=== PATIENT | male | born 1935 | race Caucasian/White ===

== ENCOUNTER 2016-12-22 15:03 | Emergency (ER) | payer MEDICARE, BC ==
[~2016-12-22 15:03] MED LIST: ACID REDUCER20 M1 PO; ADULT LOW DOSE81 M1 PO; ALBUTEROL2.5 MG/0.1 AERO NEB; ALOE VESTA56 G1 TOP; AMIODARONE HCL400 M1 PO; AVODART0.5 MG PO; BACITRACIN28.4 G2 TOP; BACTRIM 400-801 EAC1 PO; BACTRIM DS TAB1 EAC2 PO; CALCIUM500 M3 PO; COLACE100 M1 PO; COUMADIN4 M1 PO; COUMADIN5 M2 PO; COUMADIN6 M1 PO; DEMADEX20 M1 PO; DOCUSATE SODIU100 M3 PO; DULCOLAX5 M1 PO; FISH OIL 1,2001 CAP PO; FLOMAX0.4 M1 PO; FLOMAX0.4 MG PO; IBUPROFEN600 MG PO; K-TAB ER20 ME1 PO; LAXATIVE; LEXAPRO10 M2 PO; MIRALAX17 G2 PO; MOTRIN600 MG PO; NEURONTIN300 M1 PO; NORCO 5-325 TA1 EACH PO; NORCO 5/325 TAB1 TAB PO; NYSTATIN15 G2 TOP; OXAZEPAM10 M1 PO; PACERONE200 M1 PO; PREPARATION H C TOP; PROBIOTIC1 EA10 PO; PROSCAR5 M1 PO; PROTONIX40 M2 PO; RELIVE; SENOKOT-S TABL1 EACH PO; SENOKOT-S TABLE1 TAB PO; SINEMET ER 25/11 TA1 PO; SULFAMYLON60 GM TOP; TYLENOL325 M2 PO; VANCOMYCIN1 GM/1001 IV; VITAMIN D35000 UNI3 PO; VITAMIN D5000 UNI1 PO; pepcid
[2016-12-22] MEDS ORDERED: BACTRIM DS TAB1 EAC2 PO (15:10)
[2016-12-22] MEDS ORDERED: TOPROL XL25 M1 PO (15:10)
[2016-12-22] MEDS ORDERED: DIOVAN PO (15:10)
[2016-12-22] MEDS ORDERED: SYNTHROID50 MC1 PO (15:11)
[2016-12-22] MEDS ORDERED: LEXAPRO10 M2 PO (15:11)
[2016-12-22 16:34] LABS: URINE APPEARANCE CLEAR; URINE BILIRUBIN NEGATIVE (NEG); URINE BLOOD SMALL (NEG); URINE COLOR YELLOW; URINE GLUCOSE (UA) NEGATIVE (NEG); URINE KETONE NEGATIVE (NEG); URINE LEUKOCYTE ESTERASE POSITIVE (NEG); URINE NITRITE NEGATIVE (NEG); URINE PROTEIN MODERATE (NEG)
[2016-12-22 16:35] LABS: URINE EPITHELIAL CELLS 0-1 /[HPF] (0-10); URINE OTHER UNCENTRIFUGED MICRO; URINE RBC 0-2 /[HPF] (0-5); URINE WBC 0-2 /[HPF] (0-5)
[2016-12-22] MEDS ORDERED: XARELTO15 M1 PO (16:43)
[2016-12-22] MEDS ORDERED: [UNRECOGNIZED DRUG - OTHER] PO (16:43)
[2016-12-22] MEDS ORDERED: [UNRECOGNIZED DRUG - OTHER] PO (16:44)
[2016-12-22 17:30] LABS: BASO % 0.2 % (0-2); EOS % 4.2 % (0-7); EOSINOPHIL ABSOLUTE COUNT 0.2 tho/cmm (0.0-0.7); HCT-HEMATOCRIT 38.7 % (36.0-53.5); HGB-HEMOGLOBIN 13.3 gm/dl (13.5-17.0); IMMATURE GRANULOCYTES ABSOLUTE 0.02 tho/cmm (0-0.03); IMMATURE GRANULOCYTES PERCENT 0.4 % (0-0.3); LYMPH % 20.2 % (20-45); LYMPH ABSOLUTE COUNT 1.2 tho/cmm (0.8-4.5); MCH (MEAN CORPUSCULAR HGB) 31.7 pg (28.0-32.0); MCHC MEAN CORPUSCULAR HGB CONC 34.4 % (32.0-36.0); MCV (MEAN CELL VOLUME) 92.1 fl (82.0-96.0); MEAN PLATELET VOLUME 8.7 cmc (9.4-12.4); MONO % 12.7 % (0-12); MONOCYTE ABSOLUTE COUNT 0.7 tho/cmm (0.0-1.2); NEUTROPHIL ABSOLUTE COUNT 3.6 tho/cmm (1.6-8.0); NEUTROPHIL-AUTOMATED 3.6 tho/cmm (1.6-8.0); NEUTROPHILS % 62.3 % (40-80); PLATELET COUNT 204 tho/cmm (150-450); RED CELL DISTRIBUTION WIDTH 14.5 % (12.4-16.4); WHITE BLOOD COUNT 5.7 tho/cmm (4.0-10.0)
[2016-12-22 17:47] LABS: ANION GAP 10 mmol/L (0-20); BLOOD UREA NITROGEN 29 mg/dl (6-24); CARBON DIOXIDE-VENOUS 26 mmol/L (22-32); CHLORIDE 106 mmol/l (96-110); CREATININE 1.23 mg/dl (0.60-1.30); GLUCOSE 93 mg/dL (70-110); POTASSIUM 4.6 mmol/L (3.7-5.1); SODIUM 137 mmol/L (135-145); eGFR VALUE FOR BLACK 63 mL/Min
[2017-05-06] MEDS ORDERED: LEXAPRO20 M2 PO (11:33)
[2017-05-06] MEDS ORDERED: MYRBETRIQ50 M1 PO (11:37)
[2017-05-08] MEDS ORDERED: NORCO 5-325 TA1 EACH PO (08:57)
== END 2016-12-22 21:30 ==
LOC: EDMED 15:03
PROVIDERS: Emergency Medicine
DX: I38 Endocarditis, valve unspecified (principal); R06.00 Dyspnea, unspecified; I48.91 Unspecified atrial fibrillation; R39.198 Other difficulties with micturition